=== PATIENT | male | born 1980 | race Caucasian/White ===

== ENCOUNTER 2018-11-17 13:13 | Emergency (ER) | payer OTHER ==
[2018-11-17 13:29] VITALS: BP 151/97; PULSE 109; TEMP 98.5; BMI 26.4
[2018-11-17] MEDS ORDERED: IBUPROFEN 600 MG TABLET (FP) PO ONE ×2 (13:58→14:10)
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
== END 2018-11-17 15:12 | disposition home or self-care (01) ==
LOC: JERFT 13:13
DX: S89.81XA Other specified injuries of right lower leg, initial encounter (principal); M25.561 Pain in right knee; V73.5XXA Driver of bus injured in collision with car, pick-up truck or van in traffic accident, initial encounter; Y92.414 Local residential or business street as the place of occurrence of the external cause; Y93.89 Activity, other specified; Y99.0 Civilian activity done for income or pay
CPT/HCPCS: 73562-TC-RT-FY; 99281-25